=== PATIENT | male | born 2000 | race Caucasian/White ===

== ENCOUNTER → 2024-09-08 07:27 | Outpatient (CLI) | payer OTHER, SELFPAY ==
--- NOTE | 2024-09-08 07:30 | DI.MRI.S_ITS ---
PROCEDURE: MR SHOULDER LT WO CON INDICATIONS: PAIN IN LEFT SHOULDER TECHNIQUE: Noncontrast oblique coronal T2 fast spin echo with fat saturation, oblique sagittal T1 spin echo and T2 fast spin echo with fat saturation, axial T1 spin echo and T2 fast spin echo with fat saturation through the shoulder. COMPARISON: None. FINDINGS: Image quality: Excellent. Rotator cuff: Mild supraspinatus tendinosis is seen. The infraspinatus and subscapularis tendons are intact. No rotator cuff tendon rupture. Sagittal images demonstrate no rotator cuff muscle atrophy. Bones and bursae: There is marrow edema involving acromion and distal clavicle without discrete fracture line. No other area of abnormal marrow signal. Type 2 acromion, without an os acromiale. No pathologic subacromial-subdeltoid or subcoracoid bursal fluid is present. There is fluid within acromioclavicular joint with low to moderate grade partial-thickness tear involving acromioclavicular ligaments. Slight widening of acromioclavicular joint space is seen. Capsule and soft tissues: Subtle signal abnormality and fraying involving superior anterior glenoid labrum is seen concerning for subtle superior anterior glenoid labral tear. Signal abnormality and fraying involving posterior inferior glenoid labrum with adjacent lobulated cystic structure is seen concerning for posterior inferior glenoid labral tear with perilabral cyst. The long head of the biceps tendon demonstrates normal location and morphology. IMPRESSION: 1. Suggestion of bony contusion involving distal clavicle and acromion with slight widening of acromioclavicular joint space, fluid within acromioclavicular joint and low to moderate grade partial-thickness tear involving acromioclavicular ligaments concerning for grade 2 AC separation. No acute fracture or dislocation. No significant subacromial subdeltoid bursal fluid. 2. Distal supraspinatus tendinosis. No rotator cuff tendon rupture. 3. Finding may indicate subtle superior anterior glenoid labral tear. There is also suggestion of posterior inferior glenoid labral tear with perilabral cyst. Dictated by: Sundeep Stevenson M.D. on 09/08/2024 at 21:58 Approved by: Sundeep Stevenson M.D. on 09/08/2024 at 22:09
== END ==
PROVIDERS: Referring Provider Student in an Organized Health Care Education/Training Program; Visit Provider Student in an Organized Health Care Education/Training Program
DX: S43.52XA Sprain of left acromioclavicular joint, initial encounter (principal); M25.512 Pain in left shoulder
CPT/HCPCS: 73221

== ENCOUNTER → 2024-11-23 13:49 | Outpatient (CLI) | payer OTHER, SELFPAY ==
--- NOTE | 2024-11-23 13:51 | DI.RAD.S_ITS ---
PROCEDURE: FL JOINT INJECTION LARGE LT shoulder INDICATIONS: superior glenoid labrum lesion, left shoulder pain COMPARISON: None. TECHNIQUE: The indications, alternatives, benefits, risks, and complications of the procedure were explained to the patient. Written informed consent was obtained and placed in the chart. The patient was placed in an appropriate position on the fluoroscopy table, and a site was chosen for percutaneous access under fluoroscopic guidance. The site was prepped and draped in a sterile fashion. Local anesthetic was administered using a 1% lidocaine solution. A hypodermic or spinal needle was then used to access the symptomatic joint. Intra-articular location of the needle tip was confirmed by injecting a small amount of contrast, followed by steroid administration. The needle was then withdrawn, and a bandage applied to the puncture site. FINDINGS: Joint injected: Left glenohumeral joint Medications injected: 8 mL of 40 mg/mL Kenalog and 0.5% Ropivacaine mixture. Patient's pain before injection: 7 out of 10. Patient's pain after injection: 4 out of 10. Complications: None. IMPRESSION: Successful fluoroscopically guided administration of steroid and anaesthetic solution into the left glenohumeral joint. Dictated by: Lucius Shine M.D. on 11/24/2024 at 10:36 Approved by: Lucius Sihne M.D. on 11/24/2024 at 10:54
[2024-11-23] MEDS: ROPIVACAINE 0.5% PF 5 MG/ML 20ML VIAL 20 ML INJ (15:50)
[2024-11-23] MEDS: TRIAMCINOLONE 40 MG/ML VIAL INTRA-ARTI (15:50)
[2024-11-23] MEDS: LIDOCAINE 1% 20 ML INJ (15:50)
== END ==
DX: S43.432A Superior glenoid labrum lesion of left shoulder, initial encounter (principal)
CPT/HCPCS: 20610; 77002